=== PATIENT | female | born 1945 | race Caucasian/White ===

== ENCOUNTER 2018-03-04 04:50 | Emergency (ER) | payer MEDICARE, SELFPAY ==
[2018-03-04 04:50] VITALS: BP 149/89; PULSE 81; RESP 18; TEMP 36.7; O2SAT 99; BMI 28.5
--- NOTE | 2018-03-04 05:00 | RAD_ITS ---
STUDY: X-RAY - RIGHT ELBOW REASON FOR EXAM: Female, 72 years old. Pain TECHNIQUE: 3 view(s) of the elbow. COMPARISON: None. FINDINGS: Normal visualized humerus, radius and ulna. Normal radiocapitellar and ulnotrochlear articulations. The soft tissue structures are unremarkable. RAD/Elbow min 3 Views IMPRESSION: Normal x-ray examination of the elbow. Electronically Signed: Frantz Hercules MD at 5:33 EDT , Service support ,
--- NOTE | 2018-03-04 05:04 | ED.DCSUM_ITS ---
- ER Visit Summary Date of Service: 03/04/18 Chief Complaint: Right arm pain History of Present Illness: The patient is a 72 F presents to the emergency department with right arm pain. Patient has had intermittent pain over the past 2 weeks. She states she has been doing a lot of work out in her yard. She states at the end of the day, she will have some pain in her bicep and around her elbow. It was normally well relieved with Tylenol. States tonight, the pain seemed to worsen. She tried ice and took an Aleve. She had no resolution of pain. She states her hand is felt warm. She denies any new trauma. She has had no fevers or chills. She denies any recent infectious process. She states she has never really had pain like this before. Physical Examination: Exam is relatively unremarkable. The patient has normal brachial pulse. She has normal radius and ulnar pulse. There is Refill less than 2 seconds in the hand. Neurologic function of the hand and wrist is normal. She does have some pain with palpation along the proximal forearm into the head of the bicep. There is no erythema or edema. There is no pain with smaller range of motion. The shoulder is nontender. There was no large effusion. Test Results: [] Emergency Department Course and Treatment: Clinically, the patient's symptoms do seem more like a severe tendinitis. I have no suspicion of vascular compromise given her normal pulses and neurologic function. Her compartments are soft. There is no large joint effusion. There is no warmth over the joints. There is no cellulitis or erythema. X-ray shows no acute process. Again, I do feel that this is more consistent with a tendinitis. I really have no suspicion of infectious joint. The patient will be started on a steroid burst. She will be given 24 hours of analgesics. I did residential treatment counselor her that if her symptoms worsen, she needs to return or follow-up with her PCP within the next 24-48 hours. She is comfortable with this. Treatment Plan: [] Disposition: Discharge Impression: 1. Right elbow tendinitis This note was generated with datangoation software. It may contain incorrect words, spelling, and punctuation that were not noted in review of the chart prior to signing ED Disposition - Plan for ED Patient: Chief Complaint: Upper Extremity Injury Instructions: ED Bursitis Elbow Olecranon Prescriptions: MethylPREDNISolone DosePak [Medrol DosePak] 4 mg PO UD #1 box Referrals: Dmitriy Graham [Primary Care Provider] - 1-2 Days if not improving
[2018-03-04] MEDS: predniSONE 20 MG Tablet 60 MG PO (05:36)
[2018-03-04] MEDS: HYDROcodone Bitartrate/Apap 5/325 Tablet PO (05:37)
[2018-03-04 05:40] VITALS: BP 149/89; PULSE 81; RESP 18; O2SAT 99
== END 2018-03-04 05:41 | disposition home or self-care (01) ==
LOC: ED 05:23
PROVIDERS: Emergency Provider Emergency Medicine
DX: M77.9 Enthesopathy, unspecified (principal); E78.00 Pure hypercholesterolemia, unspecified; Z79.899 Other long term (current) drug therapy; Z72.0 Tobacco use
CPT/HCPCS: 73080; 99283

== ENCOUNTER 2020-08-11 17:51 | Emergency (ER) | payer MEDICARE, SELFPAY ==
[2020-08-11 17:53] VITALS: BP 129/83; PULSE 79; RESP 20; TEMP 36.8; O2SAT 99; BMI 19.7
[2020-08-11 18:00] VITALS: BP 108/70; PULSE 79; RESP 18; O2SAT 99
--- NOTE | 2020-08-11 18:10 | CT_ITS ---
We are attempting to reach an attending provider to discuss findings. An addendum with communication details will be sent when the communication is complete. STUDY: CT BRAIN WITHOUT CONTRAST REASON FOR EXAM: Female, 75 years old. CONFUSION, EXPRESSIVE APHASIA, TREMORS RADIATION DOSAGE (If Supplied By Facility): CTDIvol = ( 44.99 ) mGy, DLP = ( 745.49 ) mGycm TECHNIQUE: Transaxial CT imaging of the brain was performed without administration of intravenous contrast material. Individualized dose optimization techniques were used for this CT. COMPARISON: No relevant priors. FINDINGS: Normal soft tissue structures. Normal calvarium. There are multiple increased density masses with surrounding edema. Largest on the left measures 3.4 x 3.5 cm with heterogeneous diminished density central regions. There is effacement of the sulci and deformity of the frontal horn of the left lateral ventricle. There is 1.2 cm left parietal mass. There are 1.1 and 0.6 cm right frontal masses. There is a 1.2 cm left cerebellar mass. There is 1.2 cm right thalamic mass. Normal brainstem. There is no intracranial hemorrhage. There are no findings of an acute ischemic infarction. Normal visualized paranasal sinuses. CT/Brain/Head without Contrast IMPRESSION: Multiple bilateral masses suggesting metastatic disease. Electronically Signed: Tarun Carroll MD at 19:00 EDT , Service support ,
--- NOTE | 2020-08-11 18:10 | EKG12_ITS ---
Test Reason : MSC Blood Pressure : / mmHG Vent. Rate : 077 BPM Atrial Rate : 077 BPM P-R Int : 132 ms QRS Dur : 086 ms QT Int : 418 ms P-R-T Axes : 052 013 068 degrees QTc Int : 473 ms Normal sinus rhythm Normal ECG Confirmed by HAZEL CALDERÓN, RENARD ([id number]), fashion editor JUAQUIN WALLS ([id number]) on 08/15/2020 2:46:06 PM Referred By: TL Confirmed By:HARRIETT OLIVA MD
[2020-08-11 18:13] VITALS: BP 108/70; PULSE 78; RESP 15; O2SAT 97
--- NOTE | 2020-08-11 18:13 | ED.VIS.GEN ---
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 Patient reports works at [employer] 4 days/week. She states she did go to work yesterday. Today not feeling well reported forgot to call into work. Will check was called. Patient does admit to being more confused. Denies cough or urinary symptoms. Denies any recent vomiting or diarrhea. She states she started not feeling well after leaving work yesterday but however she is unclear what time she left since it changes. She lives alone does not walk with any assistance. History of hypercholesterolemia and anxiety depression on medications including lithium. Denies headache or visual changes. Prior similar symptoms: No Past Medical History - Allergies and Home Meds Allergies/Adverse Reactions: Allergies No Known Allergies Allergy (Verified 08/11/20 17:58) Primary Care Physician: Dmitriy Graham MD [Primary Care Provider] - Past Medical History: - - Hyperlipidemia, anxiety and depression Smoking Status: Current every day smoker Review of Systems General: Denies: Chills, Fever, Sweats Eyes: Denies: Visual changes - bilaterally, Diplopia ENT: Denies: Rhinorrhea, Sore throat Cardiovascular: Denies: Chest pain, Palpitations Respiratory: Denies: Dyspnea, Cough, Dyspnea on exertion Gastrointestinal: Denies: Abdominal pain, Nausea, Vomiting, Diarrhea, Melena, Hematochezia Genitourinary: Denies: Dysuria, Hematuria, Frequency Musculoskeletal: Denies: Back pain, Extremity Pain Skin: Denies: Rash, Wounds Neurological: Denies: Headache, Weakness, Numbness Physical Exam Vital Signs/Narrative: Vital Signs Temp Pulse Resp BP Pulse Ox 08/11/20 18:00 79 18 108/70 99 08/11/20 17:53 98.2 F 79 20 H 129/83 H 99 Inital Vital Signs reviewed: Yes General: Well nourished, Well developed, No Acute Distress, - - Answering questions with slight confusion. Slow in speech, laughing at times with questions when she could not answer them. Head: Normocephalic, Atraumatic Eyes: Perrl, EOMI ENT: Moist mucous membranes, No rhinorrhea Neck: Supple, Nontender Cardiovascular: Regular rate, Regular rhythm, No murmurs Respiratory: No distress, CTA bilaterally, Chest nontender Abdomen: Soft, Nontender, Nondistended, Normal bowel sounds Back: Nontender, Normal Inspection Extremities: Nontender, No edema Skin: Normal color, No rash Neurological: Alert, Cranial nerves II-XII grossly intact, Normal Strength, Normal Sensation, - - Alert oriented to person place and month did not know the year. NIH of 1 for expressive aphasia. Psychological: Normal affect, Normal Mood Diagnostic/Tx/Re-eval Clinical Impression(s) from Imaging Studies Brain CT 08/11/20 18:10 IMPRESSION: Multiple bilateral masses suggesting metastatic disease. Electronically Signed: Tarun Carroll MD at 19:00 EDT , Service support , ADDENDUM: 08/11/20 1908 IMPRESSION: Multiple bilateral masses suggesting metastatic disease. N.B. : The above information has been verbally conveyed by Tarun Carroll MD to Nabil Carpio MD, on 08/11/2020 19:01:40 (ET). Electronically Signed: Tarun Carroll MD at 19:00 EDT , Service support , Chest X-Ray 08/11/20 18:20 IMPRESSION: Left suprahilar infiltrate versus mass or adenopathy. Electronically Signed: Tarun Carroll MD at 18:53 EDT , Service support , - Medical Decision Making Patient NIH of 1 for expressive dysphasia. She is while out of the window for any TPA with unclear on last well-known. This is been almost 24 hours. Stroke work-up was initiated. EKG sinus rhythm no acute changes. A CT scan and discussion with radiology concerns for multiple brain lesions with surrounding vasogenic edema. She was ordered for Decadron IV. Chest x-ray reported concerns for left upper suprahilar mass versus infiltrate. She denies any cough. Urine also pending due to her confusion. However with findings on CT brain likely the cause. Patient lives alone does not live in the area. States her daughter lives in [place]. I did speak with her daughter Saeed, she is the only sibling. 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 Currently transfer line is on page. I spoke with transfer line at [place], Dr. Phil Zuniga, updated on the reads of the CT imagings findings and concerns for metastatic brain cancer likely secondary from lung cancer. Image studies and records will be placed on the chart. Patient accepted to the neurology floor. Daughter Saeed is updated.([phone]) ED Disposition - Plan for ED Patient: Disposition: Acute Care Hospital - Other Diagnosis: Metastatic cancer to brain, concerns for lung cancer, Acute encephalopathy Referrals: Dmitriy Graham MD [Primary Care Provider] -
--- NOTE | 2020-08-11 18:20 | RAD_ITS ---
STUDY: X-RAY CHEST REASON FOR EXAM: Female, 75 years old. CHANGE IN MENTAL STATUS, CONFUSION TECHNIQUE: Single AP portable view of the chest. COMPARISON: None. FINDINGS: There are monitoring devices. There is left suprahilar density. There is no demonstrated pleural abnormality. Normal size heart. Normal mediastinum and donovan. Normal visualized pulmonary arteries. There is atherosclerotic calcification of the aortic arch with tortuosity. There are diffuse degenerative changes of the visualized thoracic spine. Normal visualized ribs, clavicles, and shoulders. There is no demonstrated abnormality of the visualized soft tissue structures of the upper abdomen. RAD/Chest 1 View IMPRESSION: Left suprahilar infiltrate versus mass or adenopathy. Electronically Signed: Tarun Carroll MD at 18:53 EDT , Service support ,
[2020-08-11 18:30] LABS: Absolute Lymphocyte Count 1.82 X10^3/uL (0.83-4.51); Absolute Neutrophil Count 5.3 X10^3/uL (2.0-7.7); Basophil# 0.05 X10^3/uL; Basophil% 0.6 % (0-1); Eosinophil# 0.12 X10^3/uL; Eosinophils% 1.5 % (0-5); Hematocrit 33.3 % (37-47); Hemoglobin 10.4 g/dL (12.0-15.0); Lymphocyte # 1.82 X10^3/ul (4.0); Lymphocyte % 22.2 % (19-41); Mean Corp Hgb Conc 31.2 g/dL (32-36); Mean Corpuscular Hgb 28.9 pg (27.0-32.0); Mean Corpuscular Volume 92.5 fL (81-99); Mean Platelet Vol. 9.3 fl (6.2-12.0); Monocyte# 0.86 X10^3/uL; Monocyte% 10.5 % (0-10); NRBC Flagged by Analyzer 0 % (0-5); Neutrophil # 5.31 X10^3/uL (2.7-7.7); Platelet Count 588 K/mm3 (150-450); RBC Distribution Width CV 14.6 % (11.6-14.6); RBC Distribution Width SD 49.3 fl (35.1-43.9); White Blood Count 8.2 K/mm3 (4.4-11.0)
[2020-08-11 18:33] LABS: International Normalized Ratio 1.1
[2020-08-11 18:34] LABS: Partial Thromboplast Time 34.2 Seconds (24.1-36.2)
[2020-08-11 18:39] LABS: Anion Gap 8 (5-15); BUN 17 mg/dL (7-18); BUN/Creat Ratio 17.9 RATIO (10-20); Calcium,Total 9.3 mg/dL (8.5-10.1); Chloride 106 mmol/L (98-107); Creatinine, Serum 0.95 mg/dL (0.55-1.02); EST Glomerular Filtration Rate 61 mL/min (>60); Est Glom Filt Rate - Afr Amer 74 mL/min (>60); Estimated Creatinine Clearance 44.13 ml/min; Glucose 105 mg/dL (74-106); Potassium 3.7 mmol/L (3.5-5.1); Sodium Level 139 mmol/L (136-145)
[2020-08-11] MEDS: dexAMETHasone 10 MG/ML Vial IV (19:22)
[2020-08-11 19:39] LABS: Lithium < 0.20 mmol/L (0.60-1.20)
[2020-08-11 21:19] VITALS: BP 127/61; PULSE 88; RESP 17; O2SAT 93
--- NOTE | 2020-08-11 22:01 | ED.RN ---
patient has been accepted to [facility] room [id number]
[2020-08-12 00:10] VITALS: BP 119/78; PULSE 83; RESP 16; O2SAT 95
[2020-08-12] MEDS: dexAMETHasone 4 MG/ML Vial IV ×2 (00:41→06:52)
[2020-08-12 02:11] VITALS: BP 133/65; PULSE 85; RESP 16; O2SAT 95
[2020-08-12 04:04] VITALS: BP 116/70; PULSE 79; RESP 16; O2SAT 96
[2020-08-12 06:08] LABS: Bacteria 0 SEEN /hpf (None Seen); Mucous, Urine 0 SEEN /hpf (<or=2+)
[2020-08-12 06:16] VITALS: BP 127/74; PULSE 82; RESP 14; TEMP 36.3; O2SAT 96
[2020-08-12 06:21] LABS: Color, Urine Yellow (Yellow); Glucose, Dipstick Normal (Normal); Leukocyte Esterase-Dipstick 100 /ul (Negative); Nitrite-Dipstick Negative (Negative); Occult Blood-Urine 50 /ul (Negative); Protein-Dipstick Negative (Negative); Urine Bilirubin Dipstick Negative (Negative); Urine Clarity Clear (Clear); Urine Urobilinogen Normal (Normal)
[2020-08-12 06:25] LABS: Ketone-Dipstick 150 mg/dl (Negative)
[2020-08-12 06:26] LABS: Red Blood Cells-Urine 0-5 SEEN /hpf (0-5); Squamous Epithelial Cells - UA 0-5 SEEN /hpf (5-10); White Blood Cells 10-25 SEEN /hpf (0-5)
== END 2020-08-12 07:03 | disposition short-term general hospital (02) ==
PROVIDERS: Emergency Provider Emergency Medicine
DX: C79.31 Secondary malignant neoplasm of brain (principal); C80.1 Malignant (primary) neoplasm, unspecified; G93.40 Encephalopathy, unspecified; F17.200 Nicotine dependence, unspecified, uncomplicated; E78.00 Pure hypercholesterolemia, unspecified; E78.5 Hyperlipidemia, unspecified; F41.9 Anxiety disorder, unspecified
CPT/HCPCS: 70450; 71045; 80048; 80178; 81001; 84484; 85025; 85610; 85730; 93005; 96374; 99285; A4216